=== PATIENT | female | born 1960 | race Asian ===

== ENCOUNTER 2021-11-25 07:16 | Day surgery (SDC) | payer MEDICAID, SELFPAY ==
[~2021-11-25] VITALS: Ht 157.5 cm; Wt 54.9 kg
[2021-11-25] MEDS ORDERED: MEPERIDINE 100 MG INJ. 100 MG/ML VIAL ONE (07:32)
[2021-11-25] MEDS ORDERED: MIDAZOLAM HCL 5 MG/5 ML VIAL ONE (07:32)
[2021-11-25] MEDS ORDERED: SIMETHICONE 40 MG/0.6 ML ML ONE (07:32)
[2021-11-25 14:49] VITALS: BP_SYST 122
== END 2021-11-25 11:05 | disposition home or self-care (01) ==
LOC: SDS 07:16 → SMU 07:17 → SDS 11:05
PROVIDERS: ATTEND Internal Medicine Gastroenterology
DX: Z12.11 Encounter for screening for malignant neoplasm of colon (principal); K63.5 Polyp of colon; K57.30 Diverticulosis of large intestine without perforation or abscess without bleeding; K64.9 Unspecified hemorrhoids; I10 Essential (primary) hypertension; E78.5 Hyperlipidemia, unspecified; Z20.822 Contact with and (suspected) exposure to COVID-19; Z79.899 Other long term (current) drug therapy
CPT/HCPCS: 36415; 45380; 87426; 88305; 99152; G0378; J2175; J2250; U0003